=== PATIENT | male | born 1940 | race Caucasian/White ===

== ENCOUNTER 2016-05-26 05:48 | Day surgery (SDC) | payer MEDICARE, OTHER ==
[2016-05-26] MEDS ORDERED: MIDAZOLAM HCL 5 MG/5 ML VIAL ONE (06:27)
[2016-05-26] MEDS ORDERED: FENTANYL 250 MCG/5 ML AMP ONE (06:27)
[2016-05-26] MEDS ORDERED: IV START KIT ONE (06:35)
[2016-05-26] MEDS ORDERED: LACTATED RINGERS 1,000 ML ONE (06:35)
[2016-05-26] MEDS ORDERED: FENTANYL 250 MCG/5 ML AMP IV PRN (07:04)
[2016-05-26] MEDS ORDERED: MIDAZOLAM HCL 5 MG/5 ML VIAL IV PRN (07:04)
[2016-05-26] MEDS ORDERED: LACTATED RINGERS 1,000 ML IV SCH (07:15)
--- NOTE | 2016-05-28 10:09 | SURGPATH ---
[facility] [address] [place] [id number] Patient Name: MARYANN JOHNSON MR#: [id number] : 1940 Gender: M Specimen #: [id number] Collected: 05/26/2016 Received: 05/27/2016 Reported: 05/28/2016 Submitting Phys: AGUS CASTELAN Copy To Phys: [facility] Clinical History / Pre-Operative Diagnosis: SURVEILLANCE Specimen Source / Surgical Procedure Performed: CECAL POLYP Interpretation: CECAL POLYP, BIOPSY: - TUBULAR ADENOMA Electronically Signed Out Ahmet Crespo M.D. Gross Description: The specimen is received in a formalin filled container labeled with the patient's name and "cecal polyp". Two jarquin biopsies are 0.3 x 0.2 x 0.2 cm and 0.6 x 0.5 x 0.3 cm. The larger biopsy is bisected. Totally embedded in one cassette. Adria Bravo, P.AHemanth Microscopic Description: Microscopic performed. 1: 96068 D12.0
== END 2016-05-26 08:18 | disposition home or self-care (01) ==
LOC: SDC 05:48
PROVIDERS: ATTEND Family Medicine
PROC: 0DBH8ZX Excision of Cecum, Via Natural or Artificial Opening Endoscopic, Diagnostic (ICD-10-PCS; principal; 2016-05-26)
DX: Z12.11 Encounter for screening for malignant neoplasm of colon (principal); D12.0 Benign neoplasm of cecum; K57.30 Diverticulosis of large intestine without perforation or abscess without bleeding; N18.1 Chronic kidney disease, stage 1; I12.9 Hypertensive chronic kidney disease with stage 1 through stage 4 chronic kidney disease, or unspecified chronic kidney disease; E78.5 Hyperlipidemia, unspecified; M81.0 Age-related osteoporosis without current pathological fracture; N40.0 Benign prostatic hyperplasia without lower urinary tract symptoms; Z80.3 Family history of malignant neoplasm of breast; Z80.8 Family history of malignant neoplasm of other organs or systems; Z79.82 Long term (current) use of aspirin
CPT/HCPCS: 45384; J3010; J2250; J7120